=== PATIENT | male | born 1935 | race Two or more races ===

== ENCOUNTER 2019-05-16 13:18 | Inpatient (IN) | payer MEDICARE, OTHER ==
[~2019-05-16] VITALS: Ht 170.2 cm; Wt 65.7 kg
[2019-05-16] MEDS ORDERED: methylPREDNISolone SOD SUCC 125 MG/2 ML VL IV ONE (13:30)
[2019-05-16] MEDS ORDERED: IPRATROPIUM BROM 0.5 MG/2.5ML INH SOL HHN ONE (13:30)
[2019-05-16] MEDS ORDERED: ALBUTEROL SULF 2.5 MG/0.5ML(0.5%) NEB SOLN HHN ONE (13:30)
[2019-05-16 13:59] LABS: Basophils # (auto) 0 10 ^3/uL (0-0.2); Eosinophils # (auto) 0 10 ^3/uL (0-0.8); Hemoglobin 8.8 g/dL (13.5-17.5); Lymphocytes # (auto) 0.6 10 ^3/uL (0.4-5.4); Monocytes # (auto) 0.4 10 ^3/uL (0-1.3); Nucleated Red Blood Cells % 0.5 %; Red Cell Distribution Width 13.9 % (11.8-14.3); White Blood Cell 5.9 10^3/uL (4.4-10.8)
[2019-05-16 14:01] LABS: Basophils % (auto) 0.2 % (0.0-2.0); Eosinophils % (auto) 0.2 % (0.0-7.0); Hematocrit 27.1 % (41.0-53.0); Lymphocytes % (auto) 9.4 % (10.0-50.0); Mean Corpuscular Hemoglobin 32.9 pg (28.0-32.0); Mean Corpuscular Hgb Conc. 32.3 g/dL (32.0-36.0); Mean Corpuscular Volume 101.7 fL (80.0-100.0); Monocytes % (auto) 6.4 % (0.0-12.0); Neutrophils % (auto) 83.8 % (37.0-80.0); Platelet Count (auto) 237 10^3/uL (140-450); Red Blood Cells 2.67 10^6/uL (4.5-5.90)
[2019-05-16 14:15] LABS: Alanine Aminotransferase 17 U/L (16-61); Albumin 3.1 g/dL (3.4-5.0); Anion Gap 14 (5-15); Aspartate Aminotransferase 9 U/L (15-37); BUN/Creatinine Ratio 28.1; Calcium 8.5 mg/dL (8.5-10.1); Carbon Dioxide 13 mmol/L (21-32); Chloride 112 mmol/L (98-107); GFR African American 16 mL/min; GFR Non-African American 13 mL/min; Glucose 140 mg/dL (74-106); Potassium 4.8 mmol/L (3.5-5.1); Sodium 139 mmol/L (136-145)
[2019-05-16 14:20] LABS: Alkaline Phosphatase 92 U/L (45-117); Bilirubin, Total 0.3 mg/dL (0.2-1.0); Total Protein 8.6 g/dL (6.4-8.2)
[2019-05-16 14:21] LABS: Blood Urea Nitrogen 127 mg/dL (7-18)
[2019-05-16] MEDS ORDERED: TERA2CAP45 PO (15:19)
[2019-05-16] MEDS ORDERED: CHOL20007 PO (15:24)
[2019-05-16] MEDS ORDERED: CLOP75TA28 PO (15:24)
[2019-05-16] MEDS ORDERED: SIMV-13 PO (15:24)
[2019-05-16] MEDS ORDERED: NIFE1TAB30 PO (15:24)
[2019-05-16] MEDS ORDERED: CARV12.544 PO (15:24)
[2019-05-16] MEDS ORDERED: LOSA-69 PO (15:24)
[2019-05-16] MEDS ORDERED: FER325T PO (15:24)
[2019-05-16] MEDS ORDERED: SODIUM CHLORIDE 0.9% 1,000 ML IV SCH (16:30)
[2019-05-16] MEDS ORDERED: MORPHINE SULF INJ 2 MG/ML SYRINGE 1ML IV PRN (16:30)
[2019-05-16] MEDS ORDERED: NITROGLYCERIN 0.4 MG SL TAB SL PRN (16:30)
[2019-05-16] MEDS: DOXYCYCLINE 100MG/250ML 250 ML IV SCH (17:30)
[2019-05-16] MEDS: SODIUM CHLORIDE 0.9% 1,000 ML IV SCH ×3 (17:30→19:08)
[2019-05-16] MEDS ORDERED: ALBUTEROL SULF 2.5 MG/0.5ML(0.5%) NEB SOLN NEB PRN (17:45)
[2019-05-16] MEDS ORDERED: IPRATROPIUM BROM 0.5 MG/2.5ML INH SOL NEB PRN (17:45)
[2019-05-16] MEDS: ATORVASTATIN 20 MG TAB PO SCH (17:52)
[2019-05-16] MEDS ORDERED: PATIENTS OWN MEDICATION (Simvastatin 1 TAB) PO SCH (18:00)
[2019-05-16 18:12] VITALS: BP 117/69
[2019-05-16 18:20] VITALS: BP 130/80
[2019-05-16] MEDS: TERAZOSIN HCL 1 MG CAP PO SCH (21:41)
[2019-05-16] MEDS: NIFEdipine ER 30 MG TAB PO SCH (21:41)
[2019-05-16] MEDS: methylPREDNISolone SOD SUCC 40 MG/ML VL IV SCH (21:42)
[2019-05-16] MEDS: CARVEDILOL 12.5 MG TAB PO SCH (21:42)
[2019-05-16] MEDS: HEPARIN SODIUM (PORCINE) 5000 UNITS/ML 1ML VIAL SC SCH (21:48)
[2019-05-16 22:00] VITALS: BP 141/75
[2019-05-16] MEDS ORDERED: TERAZOSIN HCL 1 MG PO SCH (22:00)
[2019-05-16] MEDS ORDERED: HEPARIN SODIUM (PORCINE) 5000 UNITS/ML 1ML VIAL SC SCH (22:00)
[2019-05-16] MEDS ORDERED: PATIENTS OWN MEDICATION (Nifedipine (Nifedipine Er) 1 TAB) PO SCH (22:00)
[2019-05-16 22:20] LABS: Urine Amorphous Crystal FEW /hpf (None Seen); Urine Bacteria FEW /hpf (None Seen); Urine Blood 2+ /uL (Negative); Urine Mucus FEW (None Seen); Urine Specific Gravity 1.016 (1.001-1.035); Urine WBC 28 /hpf (0 - 3)
[2019-05-17 05:00] VITALS: BP 140/73
[2019-05-17 05:20] LABS: Basophils # (auto) 0 10 ^3/uL (0-0.2); Eosinophils # (auto) 0 10 ^3/uL (0-0.8); Hematocrit 26.7 % (41.0-53.0); Hemoglobin 8.7 g/dL (13.5-17.5); Lymphocytes # (auto) 0.3 10 ^3/uL (0.4-5.4); Lymphocytes % (auto) 5.3 % (10.0-50.0); Mean Corpuscular Hemoglobin 33.3 pg (28.0-32.0); Mean Corpuscular Hgb Conc. 32.7 g/dL (32.0-36.0); Mean Corpuscular Volume 101.9 fL (80.0-100.0); Monocytes # (auto) 0.1 10 ^3/uL (0-1.3); Monocytes % (auto) 1.9 % (0.0-12.0); Neutrophils % (auto) 92.8 % (37.0-80.0); Nucleated Red Blood Cells % 0.5 %; Platelet Count (auto) 202 10^3/uL (140-450); Red Blood Cells 2.62 10^6/uL (4.5-5.90); Red Cell Distribution Width 14.2 % (11.8-14.3); White Blood Cell 5.4 10^3/uL (4.4-10.8)
[2019-05-17 05:39] LABS: Calcium 8.5 mg/dL (8.5-10.1); Potassium 4.9 mmol/L (3.5-5.1)
[2019-05-17 05:43] LABS: BUN/Creatinine Ratio 30.7
[2019-05-17] MEDS: methylPREDNISolone SOD SUCC 40 MG/ML VL IV SCH ×3 (06:01→21:17)
[2019-05-17 08:00] VITALS: BP 142/71
[2019-05-17 08:45] VITALS: BP 142/71
[2019-05-17] MEDS ORDERED: PATIENTS OWN MEDICATION (Cholecalciferol (Vitamin D3) 1 TAB) PO SCH (10:00)
[2019-05-17] MEDS: DOXYCYCLINE 100MG/250ML 250 ML IV SCH ×2 (10:20→21:17)
[2019-05-17] MEDS: CHOLECALCIFEROL (VITD3) 1,000IU=25mCg TAB PO SCH (10:22)
[2019-05-17] MEDS: CARVEDILOL 12.5 MG TAB PO SCH ×2 (10:23→21:51)
[2019-05-17] MEDS: NIFEdipine ER 30 MG TAB PO SCH ×2 (10:23→21:51)
[2019-05-17] MEDS: PANTOPRAZOLE 40 MG TAB PO SCH (10:24)
[2019-05-17] MEDS: CLOPIDOGREL BISULFATE 75 MG TAB PO SCH (10:24)
[2019-05-17] MEDS: FERROUS SULFATE 325 MG TAB PO SCH (10:24)
[2019-05-17] MEDS: HEPARIN SODIUM (PORCINE) 5000 UNITS/ML 1ML VIAL SC SCH ×2 (10:27→21:50)
[2019-05-17 13:00] VITALS: BP 130/73
[2019-05-17] MEDS: IPRATROPIUM BROM 0.5 MG/2.5ML INH SOL NEB SCH ×3 (14:51→22:30)
[2019-05-17] MEDS: ALBUTEROL SULF 2.5 MG/0.5ML(0.5%) NEB SOLN NEB SCH ×3 (14:51→22:30)
[2019-05-17 17:00] VITALS: BP 142/68
[2019-05-17] MEDS: ATORVASTATIN 20 MG TAB PO SCH (17:34)
[2019-05-17] MEDS: SODIUM CHLORIDE 0.9% 1,000 ML IV SCH (17:35)
[2019-05-17] MEDS: SOD CHL 0.45% 1,000 ML IV SCH (20:05)
[2019-05-17] MEDS: TERAZOSIN HCL 1 MG CAP PO SCH (21:50)
[2019-05-17 22:10] VITALS: BP 143/70
[2019-05-18] MEDS: SOD CHL 0.45% 1,000 ML IV SCH (05:00)
[2019-05-18 05:07] VITALS: BP 135/68
[2019-05-18 05:12] LABS: Basophils # (auto) 0 10 ^3/uL (0-0.2); Basophils % (auto) 0.1 % (0.0-2.0); Eosinophils # (auto) 0 10 ^3/uL (0-0.8); Hematocrit 26.2 % (41.0-53.0); Hemoglobin 8.5 g/dL (13.5-17.5); Lymphocytes # (auto) 0.4 10 ^3/uL (0.4-5.4); Mean Corpuscular Hemoglobin 32.8 pg (28.0-32.0); Mean Corpuscular Hgb Conc. 32.4 g/dL (32.0-36.0); Mean Corpuscular Volume 101.3 fL (80.0-100.0); Monocytes # (auto) 0.2 10 ^3/uL (0-1.3); Neutrophils # (auto) 7.5 10 ^3/uL (1.6-8.6); Neutrophils % (auto) 91.9 % (37.0-80.0); Nucleated Red Blood Cells % 0.8 %; Platelet Count (auto) 241 10^3/uL (140-450); Red Blood Cells 2.59 10^6/uL (4.5-5.90); Red Cell Distribution Width 14.2 % (11.8-14.3); White Blood Cell 8.2 10^3/uL (4.4-10.8)
[2019-05-18 05:33] LABS: BUN/Creatinine Ratio 35.3; Calcium 8.3 mg/dL (8.5-10.1); Potassium 4.9 mmol/L (3.5-5.1)
[2019-05-18] MEDS: methylPREDNISolone SOD SUCC 40 MG/ML VL IV SCH ×3 (05:39→21:52)
[2019-05-18] MEDS: ALBUTEROL SULF 2.5 MG/0.5ML(0.5%) NEB SOLN NEB SCH ×5 (06:56→21:57)
[2019-05-18] MEDS: IPRATROPIUM BROM 0.5 MG/2.5ML INH SOL NEB SCH ×5 (06:57→21:57)
[2019-05-18 09:00] VITALS: BP 139/72
[2019-05-18] MEDS: CHOLECALCIFEROL (VITD3) 1,000IU=25mCg TAB PO SCH (09:22)
[2019-05-18] MEDS: CLOPIDOGREL BISULFATE 75 MG TAB PO SCH (09:22)
[2019-05-18] MEDS: PANTOPRAZOLE 40 MG TAB PO SCH (09:22)
[2019-05-18] MEDS: CARVEDILOL 12.5 MG TAB PO SCH ×2 (09:22→21:54)
[2019-05-18] MEDS: FERROUS SULFATE 325 MG TAB PO SCH (09:22)
[2019-05-18] MEDS: DOXYCYCLINE 100MG/250ML 250 ML IV SCH ×2 (09:23→21:53)
[2019-05-18] MEDS: NIFEdipine ER 30 MG TAB PO SCH ×2 (09:23→21:55)
[2019-05-18] MEDS: HEPARIN SODIUM (PORCINE) 5000 UNITS/ML 1ML VIAL SC SCH (09:31)
[2019-05-18] MEDS ORDERED: PROMETHAZINE HCL 25 MG/ML 1ML IV PRN (09:45)
[2019-05-18 12:38] VITALS: BP 131/63
[2019-05-18 17:00] VITALS: BP 141/74
[2019-05-18] MEDS ORDERED: LIDOCAINE 2% JELLY 11ml (GLYDO) UR ONE (17:00)
[2019-05-18 18:27] VITALS: BP 148/64
[2019-05-18] MEDS ORDERED: fentaNYL CITRATE 100 MCG/2 ML VL ONE (18:57)
[2019-05-18] MEDS ORDERED: LIDOCAINE 2%HCL (LOCAL ANESTH.) INJ 20ML MDV ONE (18:58)
[2019-05-18] MEDS ORDERED: MIDAZOLAM HCL 1MG/1ML-2 ML VIAL ONE (18:58)
[2019-05-18 19:00] LABS: INR 1.15 (0.9-1.15); Partial Thromboplastin Time 27.6 sec (23.64-32.05)
[2019-05-18] MEDS: ATORVASTATIN 20 MG TAB PO SCH (19:00)
[2019-05-18 21:08] LABS: Basophils # (auto) 0 10 ^3/uL (0-0.2); Eosinophils # (auto) 0 10 ^3/uL (0-0.8); Hematocrit 25.3 % (41.0-53.0); Lymphocytes # (auto) 0.3 10 ^3/uL (0.4-5.4)
[2019-05-18 21:09] VITALS: BP 128/50
[2019-05-18 21:10] LABS: Basophils % (auto) 0.1 % (0.0-2.0); Hemoglobin 8.4 g/dL (13.5-17.5); Lymphocytes % (auto) 3.5 % (10.0-50.0); Mean Corpuscular Hemoglobin 33.9 pg (28.0-32.0); Mean Corpuscular Hgb Conc. 33.1 g/dL (32.0-36.0); Mean Corpuscular Volume 102.5 fL (80.0-100.0); Monocytes # (auto) 0.2 10 ^3/uL (0-1.3); Neutrophils # (auto) 7.1 10 ^3/uL (1.6-8.6); Neutrophils % (auto) 93.4 % (37.0-80.0); Nucleated Red Blood Cells % 0.5 %; Platelet Count (auto) 250 10^3/uL (140-450); Red Blood Cells 2.46 10^6/uL (4.5-5.90); White Blood Cell 7.6 10^3/uL (4.4-10.8)
[2019-05-18] MEDS: TERAZOSIN HCL 1 MG CAP PO SCH (21:54)
[2019-05-19] VITALS (14 sets, daily range): BP systolic 109–153; BP diastolic 41–94
[2019-05-19] MEDS: methylPREDNISolone SOD SUCC 40 MG/ML VL IV SCH ×3 (06:00→22:08)
[2019-05-19 06:02] LABS: Basophils # (auto) 0 10 ^3/uL (0-0.2); Eosinophils # (auto) 0 10 ^3/uL (0-0.8); Hematocrit 23.9 % (41.0-53.0); Lymphocytes # (auto) 0.3 10 ^3/uL (0.4-5.4); Monocytes # (auto) 0.2 10 ^3/uL (0-1.3); Monocytes % (auto) 3.8 % (0.0-12.0); Red Blood Cells 2.34 10^6/uL (4.5-5.90); White Blood Cell 6.1 10^3/uL (4.4-10.8)
[2019-05-19 06:05] LABS: Hemoglobin 7.8 g/dL (13.5-17.5); Lymphocytes % (auto) 4.9 % (10.0-50.0); Mean Corpuscular Hemoglobin 33.5 pg (28.0-32.0); Mean Corpuscular Hgb Conc. 32.8 g/dL (32.0-36.0); Mean Corpuscular Volume 101.8 fL (80.0-100.0); Neutrophils # (auto) 5.6 10 ^3/uL (1.6-8.6); Neutrophils % (auto) 91.3 % (37.0-80.0); Nucleated Red Blood Cells % 0.6 %; Platelet Count (auto) 210 10^3/uL (140-450); Red Cell Distribution Width 13.8 % (11.8-14.3)
[2019-05-19 06:08] LABS: Potassium 5.1 mmol/L (3.5-5.1)
[2019-05-19 06:18] LABS: Calcium 8.1 mg/dL (8.5-10.1)
[2019-05-19] MEDS: IPRATROPIUM BROM 0.5 MG/2.5ML INH SOL NEB SCH ×5 (06:57→22:16)
[2019-05-19] MEDS: ALBUTEROL SULF 2.5 MG/0.5ML(0.5%) NEB SOLN NEB SCH ×5 (06:57→22:16)
[2019-05-19] MEDS: DOXYCYCLINE 100MG/250ML 250 ML IV SCH ×2 (10:12→22:08)
[2019-05-19] MEDS: CHOLECALCIFEROL (VITD3) 1,000IU=25mCg TAB PO SCH (10:12)
[2019-05-19] MEDS: CARVEDILOL 12.5 MG TAB PO SCH ×2 (10:13→22:09)
[2019-05-19] MEDS: FERROUS SULFATE 325 MG TAB PO SCH (10:13)
[2019-05-19] MEDS: NIFEdipine ER 30 MG TAB PO SCH ×2 (10:13→22:10)
[2019-05-19] MEDS: PANTOPRAZOLE 40 MG TAB PO SCH (10:13)
[2019-05-19 10:55] LABS: Bilirubin, Direct 0.1 mg/dL (0-0.2)
[2019-05-19 10:57] LABS: Bilirubin, Total 0.3 mg/dL (0.2-1.0); Total Protein 7.3 g/dL (6.4-8.2)
[2019-05-19 12:21] LABS: % Iron Saturation 13.2 % (20-55)
[2019-05-19] MEDS: SOD CHL 0.45% 1,000 ML IV SCH ×2 (16:25→20:20)
[2019-05-19] MEDS: ATORVASTATIN 20 MG TAB PO SCH (18:00)
[2019-05-19] MEDS: TERAZOSIN HCL 1 MG CAP PO SCH (22:10)
[2019-05-20] VITALS: BP 120/56
[2019-05-20 01:09] VITALS: BP 120/56
[2019-05-20 05:47] LABS: Albumin 2.8 g/dL (3.4-5.0); Calcium 8.4 mg/dL (8.5-10.1); Potassium 5.1 mmol/L (3.5-5.1)
[2019-05-20 05:52] LABS: BUN/Creatinine Ratio 45.3; Bilirubin, Total 0.3 mg/dL (0.2-1.0); Total Protein 7.5 g/dL (6.4-8.2)
[2019-05-20] MEDS: methylPREDNISolone SOD SUCC 40 MG/ML VL IV SCH ×3 (06:08→22:11)
[2019-05-20 07:01] LABS: Basophils # (auto) 0 10 ^3/uL (0-0.2); Basophils % (auto) 0.1 % (0.0-2.0); Eosinophils # (auto) 0 10 ^3/uL (0-0.8); Hematocrit 27.2 % (41.0-53.0); Hemoglobin 9.1 g/dL (13.5-17.5); Lymphocytes # (auto) 0.2 10 ^3/uL (0.4-5.4); Lymphocytes % (auto) 3.7 % (10.0-50.0); Mean Corpuscular Hemoglobin 33.2 pg (28.0-32.0); Mean Corpuscular Hgb Conc. 33.5 g/dL (32.0-36.0); Mean Corpuscular Volume 98.9 fL (80.0-100.0); Monocytes # (auto) 0.2 10 ^3/uL (0-1.3); Monocytes % (auto) 3.1 % (0.0-12.0); Neutrophils # (auto) 5.4 10 ^3/uL (1.6-8.6); Neutrophils % (auto) 93.1 % (37.0-80.0); Nucleated Red Blood Cells % 0.5 %; Platelet Count (auto) 225 10^3/uL (140-450); Red Blood Cells 2.75 10^6/uL (4.5-5.90); Red Cell Distribution Width 15.6 % (11.8-14.3); White Blood Cell 5.8 10^3/uL (4.4-10.8)
[2019-05-20 07:40] VITALS: BP 130/56
[2019-05-20] MEDS: SOD CHL 0.45% 1,000 ML IV SCH ×2 (10:10→11:06)
[2019-05-20] MEDS: DOXYCYCLINE 100MG/250ML 250 ML IV SCH ×2 (10:58→22:11)
[2019-05-20] MEDS: PANTOPRAZOLE 40 MG TAB PO SCH (11:28)
[2019-05-20] MEDS: CARVEDILOL 12.5 MG TAB PO SCH ×2 (11:28→22:00)
[2019-05-20] MEDS: FERROUS SULFATE 325 MG TAB PO SCH (11:28)
[2019-05-20] MEDS: NIFEdipine ER 30 MG TAB PO SCH ×2 (11:28→22:00)
[2019-05-20] MEDS: CHOLECALCIFEROL (VITD3) 1,000IU=25mCg TAB PO SCH (11:29)
[2019-05-20 11:40] VITALS: BP 134/54
[2019-05-20 13:10] LABS: Ferritin 234.7 ng/mL (10-322)
[2019-05-20] MEDS: SODIUM BICARBONATE 650 MG TAB PO SCH ×2 (14:00→22:00)
[2019-05-20] MEDS: IPRATROPIUM BROM 0.5 MG/2.5ML INH SOL NEB SCH ×5 (14:20→21:09)
[2019-05-20] MEDS: ALBUTEROL SULF 2.5 MG/0.5ML(0.5%) NEB SOLN NEB SCH ×5 (14:36→21:08)
[2019-05-20 15:40] VITALS: BP 126/55
[2019-05-20 20:02] VITALS: BP 138/58
[2019-05-20] MEDS: TERAZOSIN HCL 1 MG CAP PO SCH (22:00)
[2019-05-20] MEDS: ATORVASTATIN 20 MG TAB PO SCH (22:00)
[2019-05-21] VITALS (44 sets, daily range): BP systolic 127–182; BP diastolic 56–82
[2019-05-21 05:16] LABS: Basophils # (auto) 0 10 ^3/uL (0-0.2); Basophils % (auto) 0.1 % (0.0-2.0); Eosinophils # (auto) 0 10 ^3/uL (0-0.8); Hemoglobin 10.5 g/dL (13.5-17.5); Lymphocytes # (auto) 0.3 10 ^3/uL (0.4-5.4); Lymphocytes % (auto) 4.5 % (10.0-50.0); Mean Corpuscular Hemoglobin 32.6 pg (28.0-32.0); Mean Corpuscular Volume 98.9 fL (80.0-100.0); Monocytes # (auto) 0.2 10 ^3/uL (0-1.3); Monocytes % (auto) 3.9 % (0.0-12.0); Neutrophils # (auto) 5.4 10 ^3/uL (1.6-8.6); Neutrophils % (auto) 91.5 % (37.0-80.0); Nucleated Red Blood Cells % 0.3 %; Platelet Count (auto) 220 10^3/uL (140-450); Red Blood Cells 3.24 10^6/uL (4.5-5.90); Red Cell Distribution Width 15.1 % (11.8-14.3); White Blood Cell 5.9 10^3/uL (4.4-10.8)
[2019-05-21 05:33] LABS: Albumin 2.7 g/dL (3.4-5.0); Calcium 8.5 mg/dL (8.5-10.1)
[2019-05-21 05:36] LABS: BUN/Creatinine Ratio 42.4; Bilirubin, Total 0.4 mg/dL (0.2-1.0); Total Protein 7.2 g/dL (6.4-8.2)
[2019-05-21] MEDS: SODIUM BICARBONATE 650 MG TAB PO SCH (06:00)
[2019-05-21] MEDS: methylPREDNISolone SOD SUCC 40 MG/ML VL IV SCH ×3 (06:33→22:17)
[2019-05-21 06:51] LABS: Free T3 1.79 pg/mL (2.3-4.2); Free T4 (Free Thyroxine) 1.78 ng/dL (0.89-1.76)
[2019-05-21] MEDS: ALBUTEROL SULF 2.5 MG/0.5ML(0.5%) NEB SOLN NEB SCH ×5 (06:56→22:31)
[2019-05-21] MEDS: IPRATROPIUM BROM 0.5 MG/2.5ML INH SOL NEB SCH ×5 (06:56→22:31)
[2019-05-21] MEDS: SOD CHL 0.45% 1,000 ML IV SCH ×2 (08:00→16:51)
[2019-05-21] MEDS: FERROUS SULFATE 325 MG TAB PO SCH (10:00)
[2019-05-21] MEDS: PANTOPRAZOLE 40 MG TAB PO SCH (10:00)
[2019-05-21] MEDS: CARVEDILOL 12.5 MG TAB PO SCH ×2 (10:00→22:00)
[2019-05-21] MEDS: NIFEdipine ER 30 MG TAB PO SCH ×2 (10:00→22:00)
[2019-05-21] MEDS: CHOLECALCIFEROL (VITD3) 1,000IU=25mCg TAB PO SCH (10:00)
[2019-05-21 10:21] LABS: Folate (Folic Acid) 18.86 ng/mL (5.38-24)
[2019-05-21] MEDS: DOXYCYCLINE 100MG/250ML 250 ML IV SCH ×2 (13:32→22:17)
[2019-05-21] MEDS: hydrALAZINE HCL 20 MG/ML VL IV SCH (18:04)
[2019-05-21] MEDS ORDERED: PPN PER PHARMACY 0 ML IV SCH (18:30)
[2019-05-21] MEDS ORDERED: AMINO ACID INFUSION IN D5W 2,000 ML IV NR (18:30)
[2019-05-21] MEDS: TERAZOSIN HCL 1 MG CAP PO SCH (22:00)
[2019-05-21] MEDS: ATORVASTATIN 20 MG TAB PO SCH (22:00)
[2019-05-22] VITALS (33 sets, daily range): BP systolic 108–178; BP diastolic 55–77
[2019-05-22] MEDS ORDERED: DEXTROSE (50%) 50ML SYRG IV SCH
[2019-05-22] MEDS: hydrALAZINE HCL 20 MG/ML VL IV SCH ×4 (00:18→18:00)
[2019-05-22] MEDS: ACCU-CHEK COMFORT CURVE STRIP VI SCH ×4 (00:19→18:06)
[2019-05-22] MEDS: InsuLIN REG 1unit/0.01ml Soln (100units/ml) SC SCH ×4 (00:27→18:00)
[2019-05-22 03:56] LABS: Basophils # (auto) 0 10 ^3/uL (0-0.2); Basophils % (auto) 0.1 % (0.0-2.0); Eosinophils # (auto) 0 10 ^3/uL (0-0.8); Hematocrit 35.7 % (41.0-53.0); Hemoglobin 11.6 g/dL (13.5-17.5); Lymphocytes # (auto) 0.3 10 ^3/uL (0.4-5.4); Lymphocytes % (auto) 3.9 % (10.0-50.0); Mean Corpuscular Hemoglobin 32.2 pg (28.0-32.0); Mean Corpuscular Hgb Conc. 32.5 g/dL (32.0-36.0); Mean Corpuscular Volume 99.2 fL (80.0-100.0); Monocytes # (auto) 0.3 10 ^3/uL (0-1.3); Monocytes % (auto) 3.4 % (0.0-12.0); Neutrophils # (auto) 8.1 10 ^3/uL (1.6-8.6); Neutrophils % (auto) 92.6 % (37.0-80.0); Nucleated Red Blood Cells % 0.2 %; Platelet Count (auto) 251 10^3/uL (140-450); White Blood Cell 8.8 10^3/uL (4.4-10.8)
[2019-05-22 04:12] LABS: Calcium 8.7 mg/dL (8.5-10.1); Potassium 4.7 mmol/L (3.5-5.1)
[2019-05-22 04:17] LABS: Albumin 2.7 g/dL (3.4-5.0); BUN/Creatinine Ratio 42.6; Bilirubin, Total 0.5 mg/dL (0.2-1.0); Magnesium 2.7 mg/dL (1.6-2.6); Phosphorus 2.5 mg/dL (2.5-4.90); Pre Albumin 23.5 mg/dL (20.0-40.0); Total Protein 7.2 g/dL (6.4-8.2)
[2019-05-22] MEDS: methylPREDNISolone SOD SUCC 40 MG/ML VL IV SCH ×3 (06:20→22:42)
[2019-05-22] MEDS: ALBUTEROL SULF 2.5 MG/0.5ML(0.5%) NEB SOLN NEB SCH ×4 (06:24→22:50)
[2019-05-22] MEDS: IPRATROPIUM BROM 0.5 MG/2.5ML INH SOL NEB SCH ×4 (06:24→22:50)
[2019-05-22] MEDS: NIFEdipine ER 30 MG TAB PO SCH ×2 (10:00→22:45)
[2019-05-22] MEDS: PANTOPRAZOLE 40 MG TAB PO SCH (10:00)
[2019-05-22] MEDS: CHOLECALCIFEROL (VITD3) 1,000IU=25mCg TAB PO SCH (10:00)
[2019-05-22] MEDS: FERROUS SULFATE 325 MG TAB PO SCH (10:00)
[2019-05-22] MEDS: CARVEDILOL 12.5 MG TAB PO SCH ×2 (10:00→22:44)
[2019-05-22] MEDS: SOD CHL 0.45% 1,000 ML IV SCH (10:40)
[2019-05-22] MEDS: DOXYCYCLINE 100MG/250ML 250 ML IV SCH ×2 (11:48→22:42)
[2019-05-22] MEDS ORDERED: PPN PER PHARMACY IV NR ×7 (20:00)
[2019-05-22] MEDS: TERAZOSIN HCL 1 MG CAP PO SCH (22:45)
[2019-05-22] MEDS: ATORVASTATIN 20 MG TAB PO SCH (22:45)
[2019-05-23] MEDS: SOD CHL 0.45% 1,000 ML IV SCH (01:23)
[2019-05-23 05:47] VITALS: BP 116/59
[2019-05-23] MEDS: ACCU-CHEK COMFORT CURVE STRIP VI SCH ×4 (06:00→18:00)
[2019-05-23] MEDS: InsuLIN REG 1unit/0.01ml Soln (100units/ml) SC SCH ×4 (06:00→18:00)
[2019-05-23] MEDS: hydrALAZINE HCL 20 MG/ML VL IV SCH ×4 (06:00→18:00)
[2019-05-23] MEDS: methylPREDNISolone SOD SUCC 40 MG/ML VL IV SCH (06:30)
[2019-05-23 06:54] LABS: Basophils # (auto) 0 10 ^3/uL (0-0.2); Eosinophils # (auto) 0 10 ^3/uL (0-0.8); Eosinophils % (auto) 0.1 % (0.0-7.0); Hematocrit 33.4 % (41.0-53.0); Hemoglobin 11.1 g/dL (13.5-17.5); Lymphocytes # (auto) 0.8 10 ^3/uL (0.4-5.4); Lymphocytes % (auto) 8.7 % (10.0-50.0); Mean Corpuscular Hemoglobin 32.8 pg (28.0-32.0); Mean Corpuscular Hgb Conc. 33.4 g/dL (32.0-36.0); Mean Corpuscular Volume 98.3 fL (80.0-100.0); Monocytes # (auto) 0.7 10 ^3/uL (0-1.3); Monocytes % (auto) 7.2 % (0.0-12.0); Neutrophils # (auto) 7.6 10 ^3/uL (1.6-8.6); Nucleated Red Blood Cells % 0.2 %; Platelet Count (auto) 216 10^3/uL (140-450); Red Cell Distribution Width 14.6 % (11.8-14.3); White Blood Cell 9.1 10^3/uL (4.4-10.8)
[2019-05-23 07:06] LABS: Potassium 4.2 mmol/L (3.5-5.1)
[2019-05-23 07:11] LABS: Albumin 2.3 g/dL (3.4-5.0); BUN/Creatinine Ratio 47.4; Bilirubin, Total 0.5 mg/dL (0.2-1.0); Calcium 8.4 mg/dL (8.5-10.1); Total Protein 6.4 g/dL (6.4-8.2)
[2019-05-23] MEDS: ALBUTEROL SULF 2.5 MG/0.5ML(0.5%) NEB SOLN NEB SCH ×5 (07:26→22:23)
[2019-05-23] MEDS: IPRATROPIUM BROM 0.5 MG/2.5ML INH SOL NEB SCH ×5 (07:27→22:23)
[2019-05-23 09:00] VITALS: BP 152/68
[2019-05-23 09:13] LABS: Magnesium 2.5 mg/dL (1.6-2.6); Phosphorus 2.8 mg/dL (2.5-4.90)
[2019-05-23] MEDS: SODIUM BICARBONATE 50ML VIAL 75 ML in SOD CHL 0.45% 1,000 ML IV SCH (09:30)
[2019-05-23] MEDS ORDERED: DOXYCYCLINE 100 MG TAB/CAP PO SCH (10:00)
[2019-05-23] MEDS: CHOLECALCIFEROL (VITD3) 1,000IU=25mCg TAB PO SCH (10:00)
[2019-05-23] MEDS: NIFEdipine ER 30 MG TAB PO SCH ×2 (10:00→22:45)
[2019-05-23] MEDS: FERROUS SULFATE 325 MG TAB PO SCH (10:00)
[2019-05-23] MEDS: CARVEDILOL 12.5 MG TAB PO SCH ×2 (10:00→22:46)
[2019-05-23] MEDS: PANTOPRAZOLE 40 MG TAB PO SCH (10:00)
[2019-05-23] MEDS: DOXYCYCLINE 100MG/250ML 250 ML IV SCH ×2 (10:00→22:43)
[2019-05-23] MEDS ORDERED: LEVOTHYROXINE SODIUM 25 MCG TAB PO ONE (10:30)
[2019-05-23 13:00] VITALS: BP 144/72
[2019-05-23 17:00] VITALS: BP 156/73
[2019-05-23] MEDS ORDERED: PPN PER PHARMACY IV NR ×8 (20:00)
[2019-05-23 22:00] VITALS: BP 143/65
[2019-05-23] MEDS: TERAZOSIN HCL 1 MG CAP PO SCH (22:44)
[2019-05-23] MEDS: ATORVASTATIN 20 MG TAB PO SCH (22:45)
[2019-05-24] MEDS: InsuLIN REG 1unit/0.01ml Soln (100units/ml) SC SCH ×3 (01:05→12:16)
[2019-05-24] MEDS: SODIUM BICARBONATE 50ML VIAL 75 ML in SOD CHL 0.45% 1,000 ML IV SCH (02:49)
[2019-05-24 05:00] VITALS: BP 132/80
[2019-05-24] MEDS: IPRATROPIUM BROM 0.5 MG/2.5ML INH SOL NEB SCH ×3 (05:40→14:22)
[2019-05-24] MEDS: ALBUTEROL SULF 2.5 MG/0.5ML(0.5%) NEB SOLN NEB SCH ×3 (05:40→14:22)
[2019-05-24] MEDS: hydrALAZINE HCL 20 MG/ML VL IV SCH ×3 (06:00→12:00)
[2019-05-24] MEDS: ACCU-CHEK COMFORT CURVE STRIP VI SCH ×3 (06:07→12:16)
[2019-05-24] MEDS ORDERED: LEVOTHYROXINE SODIUM 25 MCG TAB PO SCH (07:00)
[2019-05-24] MEDS: FERROUS SULFATE 325 MG TAB PO SCH (09:46)
[2019-05-24] MEDS: DOXYCYCLINE 100MG/250ML 250 ML IV SCH (09:46)
[2019-05-24] MEDS: CHOLECALCIFEROL (VITD3) 1,000IU=25mCg TAB PO SCH (09:47)
[2019-05-24] MEDS: PANTOPRAZOLE 40 MG TAB PO SCH (09:47)
[2019-05-24] MEDS: NIFEdipine ER 30 MG TAB PO SCH (09:48)
[2019-05-24] MEDS: CARVEDILOL 12.5 MG TAB PO SCH (09:48)
[2019-05-24] MEDS ORDERED: methylPREDNISolone SOD SUCC 40 MG/ML VL IV SCH (10:00)
[2019-05-24] MEDS ORDERED: PRED20TA2 PO (12:11)
[2019-05-24] MEDS ORDERED: DOXY-338 PO (12:11)
[2019-05-24] MEDS ORDERED: LEV25T PO (12:11)
[2019-05-24 13:00] VITALS: BP 150/62
== END 2019-05-24 14:20 | disposition hospice, home (50) | DRG 682 ==
LOC: EDBD 13:18 → ER 13:25 → TELE 13:26 → WEST WING 18:25 → TELE-WESTW 20:35 → DOU IN ICU 05-18 17:47 → ICU WEST 05-21 10:15 → CENTRAL 05-22 17:58 → TELE-CENTR 05-22 18:13
PROVIDERS: ADMIT Internal Medicine; ATTEND Internal Medicine
PROC: 0W9D3ZZ Drainage of Pericardial Cavity, Percutaneous Approach (ICD-10-PCS; principal; 2019-05-18)
PROC: 30233N1 Transfusion of Nonautologous Red Blood Cells into Peripheral Vein, Percutaneous Approach (ICD-10-PCS; 2019-05-18)
PROC: 0W993ZZ Drainage of Right Pleural Cavity, Percutaneous Approach (ICD-10-PCS; 2019-05-20)
PROC: 0W9B3ZZ Drainage of Left Pleural Cavity, Percutaneous Approach (ICD-10-PCS; 2019-05-21)
DX: N17.0 Acute kidney failure with tubular necrosis (principal); G92 Toxic encephalopathy; J96.01 Acute respiratory failure with hypoxia; J18.9 Pneumonia, unspecified organism; J44.1 Chronic obstructive pulmonary disease with (acute) exacerbation; I31.4 Cardiac tamponade; E87.2 Acidosis; G93.1 Anoxic brain damage, not elsewhere classified; I31.3 Pericardial effusion (noninflammatory); E87.5 Hyperkalemia; I50.9 Heart failure, unspecified; E87.8 Other disorders of electrolyte and fluid balance, not elsewhere classified; D64.9 Anemia, unspecified; R91.1 Solitary pulmonary nodule; D75.89 Other specified diseases of blood and blood-forming organs; D50.9 Iron deficiency anemia, unspecified; E55.9 Vitamin D deficiency, unspecified; R33.9 Retention of urine, unspecified; E03.9 Hypothyroidism, unspecified; R13.10 Dysphagia, unspecified; I11.0 Hypertensive heart disease with heart failure; E78.5 Hyperlipidemia, unspecified; Z90.49 Acquired absence of other specified parts of digestive tract; Z87.891 Personal history of nicotine dependence; Z82.49 Family history of ischemic heart disease and other diseases of the circulatory system; Z79.899 Other long term (current) drug therapy
CPT/HCPCS: 32555; 33010; 36415; 51702; 70450; 71045; 71250; 74176; 76700; 76775; 76930; 80048; 80053; 80076; 81001; 82040; 82150; 82570; 82607; 82728; 82746; 82784; 82962; 83036; 83540; 83550; 83605; 83615; 83735; 83880; 83986; 84100; 84156; 84166; 84439; 84443; 84478; 84481; 84484; 85025; 85045; 85610; 85730; 86334; 86335; 86850; 86880; 86900; 86901; 86920; 87040; 87205; 89051; 92507; 92610; 93005; 93306; 93970; 94640; 95819; 96365; 96375; 97163; 99152; 99153; 99291; G0378; J1815; J2250; J3490